=== PATIENT | male | born 1975 | race African-American/Black ===

== ENCOUNTER 2016-07-16 08:25 | Inpatient (IN) | payer OTHER ==
[2016-07-16 09:13] VITALS: BMI 22.4
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
[2016-07-16] MEDS ORDERED: guaiFENesin/D-METHORPHAN HB 10 ML UNIT-DOSE CUPS PO PRN (11:41)
[2016-07-16] MEDS ORDERED: MAG HYDROX/AL HYDROX/SIMETH 30 ML UNIT-DOSE CUP PO PRN (11:41)
[2016-07-16] MEDS ORDERED: LOPERAMIDE HCL 2 MG CAPSULE PO PRN (11:41)
[2016-07-16] MEDS ORDERED: MAGNESIUM HYDROX 2400MG/30ML ORAL SUSPENSION 30 ML CUP PO PRN (11:41)
[2016-07-16] MEDS ORDERED: IBUPROFEN 400 MG TABLET (FP) PO PRN (11:41)
[2016-07-16] MEDS ORDERED: ACETAMINOPHEN 325 MG TABLET (FP) PO PRN (11:41)
[2016-07-16] MEDS ORDERED: MENTHOL/PHENOL 1 EACH UD MM PRN (11:41)
[2016-07-16] MEDS ORDERED: hydrOXYzine PAMOATE 25 MG CAPSULE (FP) PO PRN (11:41)
[2016-07-16] MEDS ORDERED: P-EPHED 60MG/TRIPROLIDI 2.5MG TABLET PO PRN (11:41)
[2016-07-16] MEDS ORDERED: NICOTINE POLACRILEX 4 MG GUM BUC PRN (11:41)
[2016-07-16] MEDS ORDERED: diphenhydrAMINE HCL 50 MG CAPSULE PO PRN (11:41)
[2016-07-16] MEDS ORDERED: chlordiazePOXIDE HCL 25 MG CAPSULE PO PRN (11:41)
[2016-07-16] MEDS ORDERED: MAGNESIUM CITRATE 300 ML BOTTLE PO PRN (11:41)
[2016-07-16] MEDS ORDERED: chlordiazePOXIDE HCL 25 MG CAPSULE PO ONE (11:51)
[2016-07-16] MEDS: NICOTINE 21 MG/24 HOURS TOPICAL PATCH TD SCH (12:22)
--- NOTE | 2016-07-16 13:21 | EKG ---
Test Reason : Blood Pressure : / mmHG Vent. Rate : 067 BPM Atrial Rate : 067 BPM P-R Int : 172 ms QRS Dur : 088 ms QT Int : 414 ms P-R-T Axes : 047 031 046 degrees QTc Int : 437 ms NORMAL SINUS RHYTHM NORMAL ECG NO PREVIOUS ECGS AVAILABLE Confirmed by JOHN MCCLELLAND MD ([id number]) on 07/16/2016 1:21:01 PM Referred By: Waylon Frausto Confirmed By:JOHN MCCLELLAND MD
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
[2016-07-16 16:14] LABS: HIV 1 & 2 AB NEGATIVE; HIV 1 AGp24 NEGATIVE
[2016-07-16] MEDS: chlordiazePOXIDE HCL 25 MG CAPSULE PO SCH ×2 (17:45→22:29)
[2016-07-16 20:37] LABS: URINE APPEARANCE CLEAR; URINE BILIRUBIN NEGATIVE (NEGATIVE); URINE BLOOD NEGATIVE (NEGATIVE); URINE COLOR LTYELLOW; URINE GLUCOSE (UA) NEGATIVE (NEGATIVE); URINE KETONE 1+ (NEGATIVE); URINE LEUK ESTERASE NEGATIVE (NEGATIVE); URINE NITRITE NEGATIVE (NEGATIVE); URINE PROTEIN NEGATIVE (NEGATIVE); URINE UROBILINOGEN NEGATIVE E.U./dl (0.2-1.0)
[2016-07-16] MEDS: ZOLPIDEM TARTRATE 5 MG TABLET PO PRN (22:29)
[2016-07-16] MEDS: THIAMINE HCL 100 MG TABLET (FP) PO SCH (22:29)
[2016-07-17] MEDS: chlordiazePOXIDE HCL 25 MG CAPSULE PO SCH ×4 (05:54→22:13)
[2016-07-17 10:07] LABS: MCH 29.6 pg (25.7-33.7); MCHC 32.3 g/dl (32.0-35.9); MEAN CELL VOLUME 91.8 fl (80-96); MEAN PLT VOLUME 8.3 fl (7.5-11.1); RDW 13.6 % (11.9-15.9); WHITE BLOOD COUNT 5.7 K/mm3 (4.0-10.0)
[2016-07-17 10:21] LABS: ANION GAP 7 (8-16); CALCIUM 9.9 mg/dL (8.5-10.1); CO2 31 mmol/L (21-32); GLUCOSE,RANDOM 95 mg/dL (74-106)
[2016-07-17 10:26] LABS: ALBUMIN 4.4 g/dl (3.4-5.0); ALK PHOS 61 U/L (45-117); BILIRUBIN,TOTAL 0.6 mg/dL (0.2-1.0); CREATININE 1.1 mg/dL (0.7-1.3); SGOT/AST 18 U/L (15-37); SGPT/ALT 20 U/L (12-78); TOT PROT 7.6 g/dl (6.4-8.2)
[2016-07-17] MEDS: PRENATAL VITAMINS W/ FOLIC ACID TABLET (FP) PO SCH (10:36)
[2016-07-17] MEDS: NICOTINE 21 MG/24 HOURS TOPICAL PATCH TD SCH (10:36)
[2016-07-17 11:30] LABS: PLATELET ESTIMATE ADEQUATE (NORMAL)
--- NOTE | 2016-07-17 11:43 | PN ---
S CIWA - CIWA Score Nausea/Vomitin-No Nausea/No Vomiting Muscle Tremors: 3 Anxiety: 2 Agitation: 1-Slight > Activity Paroxysmal Sweats: 3 Orientation: 0-Oriented Tacttile Disturbances: 2-Mild Itch/Numbness/Burn Auditory Disturbances: 0-None Visual Disturbances: 1-Very Mild Sensitivity Headache: 3-Moderate CIWA-Ar Total Score: 15 BHS Progress Note (SOAP) Subjective: Sweating, Tremors, Interrupted sleep, Hot / Cold sensations, Headache. Objective: 07/17/16 11:40 Vital Signs Temperature 97.7 F 07/17/16 06:29 Pulse Rate 69 07/17/16 09:36 Respiratory Rate 18 07/17/16 09:36 Blood Pressure 112/72 07/17/16 09:36 O2 Sat by Pulse Oximetry (%) Laboratory Last Values WBC 5.7 K/mm3 (4.0-10.0) 07/17/16 06:00 RBC 4.84 M/mm3 (4.00-5.60) 07/17/16 06:00 Hgb 14.3 GM/dL (11.7-16.9) 07/17/16 06:00 Hct 44.4 % (35.4-49) 07/17/16 06:00 MCV 91.8 fl (80-96) 07/17/16 06:00 MCHC 32.3 g/dl (32.0-35.9) 07/17/16 06:00 RDW 13.6 % (11.9-15.9) 07/17/16 06:00 Plt Count Not Reportable 07/17/16 06:00 MPV 8.3 fl (7.5-11.1) 07/17/16 06:00 Platelet Estimate Adequate (NORMAL) 07/17/16 06:00 Platelet Comment Marked plt clumping 07/17/16 06:00 Sodium 138 mmol/L (136-145) 07/17/16 06:00 Potassium 3.8 mmol/L (3.5-5.1) 07/17/16 06:00 Chloride 100 mmol/L (98-107) 07/17/16 06:00 Carbon Dioxide 31 mmol/L (21-32) 07/17/16 06:00 Anion Gap 7 (8-16) L 07/17/16 06:00 BUN 11 mg/dL (7-18) D 07/17/16 06:00 Creatinine 1.1 mg/dL (0.7-1.3) 07/17/16 06:00 Creat Clearance w eGFR > 60 (>60) 07/17/16 06:00 Random Glucose 95 mg/dL (74-106) 07/17/16 06:00 Calcium 9.9 mg/dL (8.5-10.1) 07/17/16 06:00 Total Bilirubin 0.6 mg/dL (0.2-1.0) D 07/17/16 06:00 AST 18 U/L (15-37) D 07/17/16 06:00 ALT 20 U/L (12-78) 07/17/16 06:00 Alkaline Phosphatase 61 U/L (45-117) D 07/17/16 06:00 Total Protein 7.6 g/dl (6.4-8.2) 07/17/16 06:00 Albumin 4.4 g/dl (3.4-5.0) 07/17/16 06:00 Urine Color Ltyellow 07/16/16 14:00 Urine Appearance Clear 07/16/16 14:00 Urine pH 5.0 (5.0-8.0) 07/16/16 14:00 Ur Specific [place] 1.008 (1.001-1.035) 07/16/16 14:00 Urine Protein Negative (NEGATIVE) 07/16/16 14:00 Urine Glucose (UA) Negative (NEGATIVE) 07/16/16 14:00 Urine Ketones 1+ (NEGATIVE) H 07/16/16 14:00 Urine Blood Negative (NEGATIVE) 07/16/16 14:00 Urine Nitrite Negative (NEGATIVE) 07/16/16 14:00 Urine Bilirubin Negative (NEGATIVE) 07/16/16 14:00 Urine Urobilinogen Negative E.U./dl (0.2-1.0) 07/16/16 14:00 Ur Leukocyte Esterase Negative (NEGATIVE) 07/16/16 14:00 RPR Titer Nonreactive (NONREACTIVE) 07/17/16 06:00 HIV 1&2 Antibody Screen Negative 07/16/16 10:55 HIV P24 Antigen Negative 07/16/16 10:55 LABS NOTED. 07/17/16 11:42 Assessment: 07/17/16 11:41 WITHDRAWAL SYMPTOMS. Plan: CONTINUE DETOX. ADVISED PT. TO FOLLOW-UP WITH [facility] AFTER DISCHARGE FROM DETOX FOR GENERAL MEDICAL ASSESSMENT AND FOR LAB ASSESSMENT.
[2016-07-17] MEDS: THIAMINE HCL 100 MG TABLET (FP) PO SCH (22:13)
[2016-07-17] MEDS: ZOLPIDEM TARTRATE 5 MG TABLET PO PRN (22:13)
[2016-07-18] MEDS: chlordiazePOXIDE HCL 25 MG CAPSULE PO SCH ×2 (06:34→10:44)
--- NOTE | 2016-07-18 10:03 | PN ---
S CIWA - CIWA Score Nausea/Vomitin Muscle Tremors: 3 Anxiety: 2 Agitation: 2 Paroxysmal Sweats: No Perspiration Orientation: 0-Oriented Tacttile Disturbances: 0-None Auditory Disturbances: 2-Mild Harshness/Frighten Visual Disturbances: 0-None Headache: 2-Mild CIWA-Ar Total Score: 13 S Progress Note (SOAP) Objective: 07/18/16 10:02 Laboratory Last Values WBC 5.7 K/mm3 (4.0-10.0) 07/17/16 06:00 RBC 4.84 M/mm3 (4.00-5.60) 07/17/16 06:00 Hgb 14.3 GM/dL (11.7-16.9) 07/17/16 06:00 Hct 44.4 % (35.4-49) 07/17/16 06:00 MCV 91.8 fl (80-96) 07/17/16 06:00 MCHC 32.3 g/dl (32.0-35.9) 07/17/16 06:00 RDW 13.6 % (11.9-15.9) 07/17/16 06:00 Plt Count Not Reportable 07/17/16 06:00 MPV 8.3 fl (7.5-11.1) 07/17/16 06:00 Platelet Estimate Adequate (NORMAL) 07/17/16 06:00 Platelet Comment Marked plt clumping 07/17/16 06:00 Sodium 138 mmol/L (136-145) 07/17/16 06:00 Potassium 3.8 mmol/L (3.5-5.1) 07/17/16 06:00 Chloride 100 mmol/L (98-107) 07/17/16 06:00 Carbon Dioxide 31 mmol/L (21-32) 07/17/16 06:00 Anion Gap 7 (8-16) L 07/17/16 06:00 BUN 11 mg/dL (7-18) D 07/17/16 06:00 Creatinine 1.1 mg/dL (0.7-1.3) 07/17/16 06:00 Creat Clearance w eGFR > 60 (>60) 07/17/16 06:00 Random Glucose 95 mg/dL (74-106) 07/17/16 06:00 Calcium 9.9 mg/dL (8.5-10.1) 07/17/16 06:00 Total Bilirubin 0.6 mg/dL (0.2-1.0) D 07/17/16 06:00 AST 18 U/L (15-37) D 07/17/16 06:00 ALT 20 U/L (12-78) 07/17/16 06:00 Alkaline Phosphatase 61 U/L (45-117) D 07/17/16 06:00 Total Protein 7.6 g/dl (6.4-8.2) 07/17/16 06:00 Albumin 4.4 g/dl (3.4-5.0) 07/17/16 06:00 Urine Color Ltyellow 07/16/16 14:00 Urine Appearance Clear 07/16/16 14:00 Urine pH 5.0 (5.0-8.0) 07/16/16 14:00 Ur Specific [place] 1.008 (1.001-1.035) 07/16/16 14:00 Urine Protein Negative (NEGATIVE) 07/16/16 14:00 Urine Glucose (UA) Negative (NEGATIVE) 07/16/16 14:00 Urine Ketones 1+ (NEGATIVE) H 07/16/16 14:00 Urine Blood Negative (NEGATIVE) 07/16/16 14:00 Urine Nitrite Negative (NEGATIVE) 07/16/16 14:00 Urine Bilirubin Negative (NEGATIVE) 07/16/16 14:00 Urine Urobilinogen Negative E.U./dl (0.2-1.0) 07/16/16 14:00 Ur Leukocyte Esterase Negative (NEGATIVE) 07/16/16 14:00 RPR Titer Nonreactive (NONREACTIVE) 07/17/16 06:00 HIV 1&2 Antibody Screen Negative 07/16/16 10:55 HIV P24 Antigen Negative 07/16/16 10:55 Vital Signs - 24 hr 07/17/16 07/17/16 07/17/16 15:02 20:24 22:01 Temperature 97 F L 98.1 F 98.1 F Pulse Rate 76 72 97 H Respiratory 18 18 20 Rate Blood Pressure 101/75 101/61 105/69 07/18/16 07/18/16 07/18/16 00:30 03:30 06:00 Temperature 96.6 F L Pulse Rate 63 Respiratory 18 18 18 Rate Blood Pressure 92/61 Assessment: 0203/17 10:03 ongoing withdrawal Plan: continue detox protocol
[2016-07-18] MEDS: PRENATAL VITAMINS W/ FOLIC ACID TABLET (FP) PO SCH (10:44)
[2016-07-18] MEDS: NICOTINE 21 MG/24 HOURS TOPICAL PATCH TD SCH (10:44)
[2016-07-18] MEDS: chlordiazePOXIDE 5 MG CAPSULE PO SCH ×2 (17:04→22:11)
[2016-07-18] MEDS: THIAMINE HCL 100 MG TABLET (FP) PO SCH (22:11)
[2016-07-18] MEDS: ZOLPIDEM TARTRATE 5 MG TABLET PO PRN (22:11)
[2016-07-19] MEDS: chlordiazePOXIDE 5 MG CAPSULE PO SCH ×2 (06:31→10:12)
[2016-07-19 10:05] VITALS: BP 109/76; PULSE 76; TEMP 97.2
[2016-07-19] MEDS: PRENATAL VITAMINS W/ FOLIC ACID TABLET (FP) PO SCH (10:12)
[2016-07-19] MEDS: NICOTINE 21 MG/24 HOURS TOPICAL PATCH TD SCH (10:13)
--- NOTE | 2016-07-19 10:51 | PN ---
S Progress Note (SOAP) Subjective: ALERT,NO COMPLAINT Objective: 07/19/16 10:49 Vital Signs Temperature 97.2 F L 07/19/16 10:05 Pulse Rate 76 07/19/16 10:05 Respiratory Rate 18 07/19/16 10:05 Blood Pressure 109/76 07/19/16 10:05 O2 Sat by Pulse Oximetry (%) Assessment: 07/19/16 10:49 PATIENT IS STABLE FOR DISCHARGE TODAY Plan: DISCHARGE TODAY,FOLLOW UP WITH AFTER CARE PROGRAM ARRANGEMENT
--- NOTE | 2016-07-19 10:51 | DS ---
[facility] Detox Discharge Summary Admission Date: 07/16/16 Discharge Date: 07/19/16 - History Present History: Alcohol Dependence Additional Comments: FOLLOW UP WITH AFTER CARE PROGRAM ARRANGEMENT Pertinent Past History: NICOTINE DEPENDENCE - Physical Exam Results Vital Signs: Vital Signs Temperature 97.2 F L 07/19/16 10:05 Pulse Rate 76 07/19/16 10:05 Respiratory Rate 18 07/19/16 10:05 Blood Pressure 109/76 07/19/16 10:05 O2 Sat by Pulse Oximetry (%) Pertinent Admission Physical Exam Findings: WITHDRAWAL SYMPTOM - Treatment Hospital Course: Detox Protocol Followed, Detoxed Safely, Responded well, Discharged Condition Good Patient has Accepted a Rehab Referral to: DECLINED - Medication Discharge Medications: Ambulatory Orders NK [No Known Home Medication] 10/01/15 - Diagnosis (1) Alcohol dependence with uncomplicated withdrawal Current Visit: Yes Status: Acute (2) Nicotine dependence Current Visit: Yes Status: Acute Qualifiers: Nicotine product type: cigarettes Substance use status: uncomplicated Qualified Code(s): F17.210 - Nicotine dependence, cigarettes, uncomplicated - AMA Did Patient Leave Against Medical Advice: No
[2016-07-19] MEDS ORDERED: chlordiazePOXIDE HCL 10 MG CAPSULE PO SCH (17:00)
== END 2016-07-19 11:50 | disposition home or self-care (01) | DRG 775 ==
LOC: YASAS 08:25 → Y6N 11:02
PROVIDERS: ADMIT Internal Medicine Addiction Medicine; ATTEND Internal Medicine Addiction Medicine
PROC: HZ2ZZZZ Detoxification Services for Substance Abuse Treatment (ICD-10-PCS; principal; 2016-07-19)
DX: F10.230 Alcohol dependence with withdrawal, uncomplicated (principal); F17.210 Nicotine dependence, cigarettes, uncomplicated; F10.280 Alcohol dependence with alcohol-induced anxiety disorder; B35.3 Tinea pedis; Z59.0 Homelessness
CPT/HCPCS: 36415; 80053; 81003; 85027; 86593; 87389; 93005; 93010

== ENCOUNTER 2022-08-12 11:46 | Inpatient (IN) | payer OTHER ==
[2022-08-12 12:57] VITALS: BMI 24.4
[2022-08-12] MEDS ORDERED: DICYCLOMINE HCL 10 MG CAPSULE PO PRN (13:22)
[2022-08-12] MEDS ORDERED: POLYETHYLENE GLYCOL (HEALTHYLAX) 3350 17 GM PACKET PO PRN (13:22)
[2022-08-12] MEDS ORDERED: chlordiazePOXIDE HCL 25 MG CAPSULE PO PRN (13:22)
[2022-08-12] MEDS ORDERED: BENZOCAINE/MENTHOL (CHLORASEPTIC ) LOZENGE MM PRN (13:22)
[2022-08-12] MEDS ORDERED: MAG HYDROX/AL HYDROX/SIMETH 30 ML UNIT-DOSE CUP PO PRN (13:22)
[2022-08-12] MEDS ORDERED: BISMUTH SUBSALICYLATE 524 MG/30 ML PO PRN (13:22)
[2022-08-12] MEDS ORDERED: ONDANSETRON *ODT* 4 MG TABLET SL PRN (13:22)
[2022-08-12] MEDS ORDERED: LOPERAMIDE HCL 2 MG CAPSULE PO PRN (13:22)
[2022-08-12] MEDS ORDERED: NALOXONE HCL (KLOXXADO) 8 MG SPRAY NS PRN (13:22)
[2022-08-12] MEDS ORDERED: IBUPROFEN 600 MG TABLET (FP) PO PRN (13:22)
[2022-08-12] MEDS ORDERED: IBUPROFEN 400 MG TABLET (FP) PO PRN (13:22)
[2022-08-12] MEDS ORDERED: ACETAMINOPHEN 325 MG TABLET (FP) PO PRN ×2 (13:22)
[2022-08-12] MEDS ORDERED: MAGNESIUM HYDROX 2400MG/30ML ORAL SUSPENSION 30 ML CUP PO PRN (13:22)
[2022-08-12] MEDS ORDERED: NICOTINE 10 MG CARTRIDGE (INHALER) IH PRN (13:22)
[2022-08-12] MEDS ORDERED: chlordiazePOXIDE HCL 25 MG CAPSULE ONE (13:48)
[2022-08-12] MEDS ORDERED: PRENATAL VITAMINS W/ FOLIC ACID TABLET (FP) PO ONE (13:49)
[2022-08-12] MEDS: PRENATAL VITAMINS W/ FOLIC ACID TABLET (FP) PO SCH (13:52)
[2022-08-12] MEDS: NICOTINE 14 MG/24 HOURS TOPICAL PATCH TD SCH (14:12)
[2022-08-12] MEDS: chlordiazePOXIDE HCL 25 MG CAPSULE PO SCH ×2 (17:41→22:22)
[2022-08-12 19:37] LABS: HEMATOCRIT 40.4 % (35.4-49); MCH 28.5 pg (25.7-33.7); MCHC 32.2 g/dl (32.0-35.9); MEAN CELL VOLUME 88.6 fl (80-96); MEAN PLT VOLUME 7.8 fl (7.5-11.1); PLATELET COUNT 258 10^3/uL (134-434); RBC 4.56 M/mm3 (4.00-5.60); RDW 14.1 % (11.9-15.9); WHITE BLOOD COUNT 6.3 K/mm3 (4.0-10.0)
[2022-08-12 19:48] LABS: ALBUMIN 3.9 g/dl (3.4-5.0); BLOOD UREA NITROGEN 14.9 mg/dL (7-18); CALCIUM 8.9 mg/dL (8.5-10.1)
[2022-08-12 19:51] LABS: CREATININE 1.1 mg/dL (0.55-1.3)
[2022-08-12 19:52] LABS: BILIRUBIN,TOTAL 0.2 mg/dL (0.2-1); TOT PROT 7.3 g/dl (6.4-8.2)
[2022-08-12 20:37] LABS: HIV INTERPRETATION NEGATIVE (NEGATIVE)
[2022-08-12] MEDS ORDERED: MELATONIN 5 MG TABLETS PO SCH (22:00)
[2022-08-12] MEDS: THIAMINE HCL 100 MG TABLET (FP) PO SCH (22:22)
[2022-08-13] MEDS: chlordiazePOXIDE HCL 25 MG CAPSULE PO SCH ×4 (06:32→22:34)
[2022-08-13] MEDS: PRENATAL VITAMINS W/ FOLIC ACID TABLET (FP) PO SCH (10:24)
[2022-08-13] MEDS: hydrOXYzine PAMOATE 25 MG CAPSULE (FP) PO PRN (10:24)
[2022-08-13] MEDS: METHOCARBAMOL 500 MG TABLET PO PRN (10:24)
[2022-08-13] MEDS: NICOTINE 14 MG/24 HOURS TOPICAL PATCH TD SCH (10:24)
[2022-08-13] MEDS: MELATONIN 5 MG TABLETS PO SCH (22:34)
[2022-08-13] MEDS: THIAMINE HCL 100 MG TABLET (FP) PO SCH (22:34)
[2022-08-14] MEDS: chlordiazePOXIDE HCL 25 MG CAPSULE PO SCH ×4 (05:48→22:09)
[2022-08-14] MEDS: PRENATAL VITAMINS W/ FOLIC ACID TABLET (FP) PO SCH (10:53)
[2022-08-14] MEDS: NICOTINE 14 MG/24 HOURS TOPICAL PATCH TD SCH (10:54)
[2022-08-14] MEDS: THIAMINE HCL 100 MG TABLET (FP) PO SCH (22:09)
[2022-08-14] MEDS: MELATONIN 5 MG TABLETS PO SCH (22:09)
[2022-08-15] MEDS ORDERED: chlordiazePOXIDE HCL 10 MG CAPSULE PO PRN
[2022-08-15] MEDS: chlordiazePOXIDE HCL 10 MG CAPSULE PO SCH ×4 (05:18→22:11)
[2022-08-15] MEDS: hydrOXYzine PAMOATE 25 MG CAPSULE (FP) PO PRN (10:28)
[2022-08-15] MEDS: METHOCARBAMOL 500 MG TABLET PO PRN (10:28)
[2022-08-15] MEDS: PRENATAL VITAMINS W/ FOLIC ACID TABLET (FP) PO SCH (10:28)
[2022-08-15] MEDS: NICOTINE 14 MG/24 HOURS TOPICAL PATCH TD SCH (10:29)
[2022-08-15] MEDS: THIAMINE HCL 100 MG TABLET (FP) PO SCH (22:11)
[2022-08-15] MEDS: MELATONIN 5 MG TABLETS PO SCH (22:11)
[2022-08-16] MEDS: chlordiazePOXIDE HCL 10 MG CAPSULE PO SCH ×2 (05:13→17:51)
[2022-08-16] MEDS: hydrOXYzine PAMOATE 25 MG CAPSULE (FP) PO PRN (09:53)
[2022-08-16] MEDS: METHOCARBAMOL 500 MG TABLET PO PRN ×2 (09:53→21:56)
[2022-08-16] MEDS: PRENATAL VITAMINS W/ FOLIC ACID TABLET (FP) PO SCH (09:53)
[2022-08-16] MEDS: NICOTINE 14 MG/24 HOURS TOPICAL PATCH TD SCH (09:54)
[2022-08-16] MEDS: THIAMINE HCL 100 MG TABLET (FP) PO SCH (21:56)
[2022-08-16] MEDS: MELATONIN 5 MG TABLETS PO SCH (21:56)
[2022-08-17] MEDS ORDERED: chlordiazePOXIDE HCL 10 MG CAPSULE PO ONE (05:00)
[2022-08-17 06:52] VITALS: RESP 18
[2022-08-17 09:14] VITALS: BP 108/74; PULSE 77; TEMP 98
[2022-08-17] MEDS: NICOTINE 14 MG/24 HOURS TOPICAL PATCH TD SCH (09:54)
[2022-08-17] MEDS: PRENATAL VITAMINS W/ FOLIC ACID TABLET (FP) PO SCH (09:54)
== END 2022-08-17 10:05 | disposition home or self-care (01) | DRG 775 ==
LOC: YASAS 11:46 → Y6N 13:58
PROVIDERS: ADMIT Allergy & Immunology; ATTEND Surgery
PROC: HZ2ZZZZ Detoxification Services for Substance Abuse Treatment (ICD-10-PCS; principal; 2022-08-12)
DX: F10.230 Alcohol dependence with withdrawal, uncomplicated (principal); F12.20 Cannabis dependence, uncomplicated; F17.210 Nicotine dependence, cigarettes, uncomplicated; F10.282 Alcohol dependence with alcohol-induced sleep disorder; F10.24 Alcohol dependence with alcohol-induced mood disorder; F32.A Depression, unspecified; Z62.810 Personal history of physical and sexual abuse in childhood; Z91.410 Personal history of adult physical and sexual abuse; Z56.0 Unemployment, unspecified; Z59.00 Homelessness unspecified
CPT/HCPCS: 36415; 80053; 83036; 85027; 86780; 87389; 93005; 93010; C9803-CS; U0003; U0005